=== PATIENT | female | born 1975 | race Caucasian/White ===

== ENCOUNTER 2022-03-20 09:01 | Outpatient (CLI) | payer OTHER | END 2022-03-20 09:02 | disposition home or self-care (01) | LOC: BICRAD 09:01 | PROVIDERS: ATTEND Chiropractor | DX: M19.90 Unspecified osteoarthritis, unspecified site (principal) ==

== ENCOUNTER 2022-06-21 10:50 | Outpatient (CLI) | payer OTHER | END 2022-06-21 10:51 | disposition home or self-care (01) | LOC: RAD 10:50 | PROVIDERS: ATTEND Anesthesiology Pain Medicine | DX: M43.17 Spondylolisthesis, lumbosacral region (principal); M47.816 Spondylosis without myelopathy or radiculopathy, lumbar region; M47.814 Spondylosis without myelopathy or radiculopathy, thoracic region | CPT/HCPCS: 72110 ==

== ENCOUNTER 2022-09-01 06:05 | Day surgery (SDC) | payer OTHER ==
[2022-08-31 10:11] VITALS: BMI 39.8
[2022-09-01] MEDS ORDERED: Lidocaine 1% MPF 2 ML VIAL ONE ×2 (06:56→07:38)
[2022-09-01] MEDS ORDERED: CEFAZOLIN 2 GM VIAL ONE ×2 (06:56→14:22)
[2022-09-01] MEDS ORDERED: Sodium Chloride 0.9% 100 ML ONE ×2 (06:57→14:22)
[2022-09-01] MEDS ORDERED: fentaNYL PF 100 MCG/2 ML SYRINGE ONE (08:42)
[2022-09-01] MEDS ORDERED: HYDROmorphone 0.5 MG/0.5 ML SYRINGE ONE (08:42)
[2022-09-01] MEDS ORDERED: Thrombin 5000 UNITS/5 ML VIAL ONE ×2 (08:48→08:49)
[2022-09-01] MEDS ORDERED: Bupivacaine HCl 0.5%/Epinephrine 1:200,000/PF 30 ml Vial ONE ×2 (08:48→08:49)
[2022-09-01] MEDS ORDERED: FENTANYL 50 MCG/ML 1 ML VIAL ONE ×3 (09:02→12:09)
[2022-09-01] MEDS ORDERED: Metoclopramide HCl 10 MG/2 ML VIAL ONE (09:11)
[2022-09-01] MEDS ORDERED: PROPOFOL 200 MG/20 ML VIAL ONE (09:11)
[2022-09-01] MEDS ORDERED: NEOSTIGMINE 3 MG/3 ML SYR 3 MG/3 ML SYRINGE ONE (09:11)
[2022-09-01] MEDS ORDERED: Glycopyrrolate 0.2 MG/ML 5 ML SYRINGE ONE (09:11)
[2022-09-01] MEDS ORDERED: ePHEDrine 50 MG/ML VIAL ONE (09:11)
[2022-09-01] MEDS ORDERED: Rocuronium Bromide 50 MG/5 ML VIAL ONE (09:11)
[2022-09-01] MEDS ORDERED: Phenylephrine 10 MG/ML VIAL ONE (09:11)
[2022-09-01] MEDS ORDERED: Dexamethasone 20 MG/5 ML VIAL ONE (09:11)
[2022-09-01] MEDS ORDERED: Ondansetron PF 4 MG/2 ML Vial ONE (09:11)
[2022-09-01] MEDS ORDERED: Morphine 4 MG/ML VIAL ONE (13:37)
[2022-09-01] MEDS ORDERED: HYDROcodone/Acetaminophen 5/325 mg Tablet ONE (14:09)
== END 2022-09-01 15:07 | disposition home or self-care (01) ==
LOC: SDC 06:05
PROVIDERS: ATTEND Neurological Surgery
PROC: 0SG3071 Fusion of Lumbosacral Joint with Autologous Tissue Substitute, Posterior Approach, Posterior Column, Open Approach (ICD-10-PCS; principal; 2022-09-01)
DX: M47.817 Spondylosis without myelopathy or radiculopathy, lumbosacral region (principal); M43.17 Spondylolisthesis, lumbosacral region; M48.07 Spinal stenosis, lumbosacral region; M54.16 Radiculopathy, lumbar region; M21.379 Foot drop, unspecified foot; G89.4 Chronic pain syndrome; M19.90 Unspecified osteoarthritis, unspecified site; Z79.899 Other long term (current) drug therapy; Z88.4 Allergy status to anesthetic agent; Z91.02 Food additives allergy status; Z91.030 Bee allergy status; Z91.040 Latex allergy status; Z91.048 Other nonmedicinal substance allergy status
CPT/HCPCS: C1713; C1768; C1776; J1100; J1170; J2270; J2370; J2405; J2704; J2765; J3010; J3490

== ENCOUNTER 2022-09-02 23:46 | Observation (INO) | payer OTHER ==
[2022-09-03] MEDS ORDERED: Morphine 4 MG/ML VIAL ONE ×2 (00:09→02:24)
[2022-09-03] MEDS ORDERED: Ondansetron PF 4 MG/2 ML Vial ONE (00:09)
[2022-09-03 00:45] LABS: #Basophils 0.1 thou/uL (0.0-0.2); #Eosinphils 0.1 thou/uL (0.0-0.7); #Lymphocytes 2.2 thou/uL (1.20-3.40); #Monocytes 1.7 thou/uL (0.11-0.59); #Neutrophils 12.9 thou/uL (1.40-6.50); %Basophils 0.3 % (0.0-1.0); %Eosinophils 0.6 % (0.0-10.0); %Lymphocytes 12.9 % (21.0-51.0); %Monocytes 9.8 % (0.0-10.0); %Neutrophils 76.4 % (42.0-75.0); Mean Corpuscular HGB CONC 33.3 g/dL (32.0-36.0); Mean Corpuscular Hemoglobin 28.7 pg (27.0-31.0); Mean Corpuscular Volume 86.2 fl (78.0-98.0); Mean Platelet Volume 7.9 fL (7.4-10.4); Platelet Count 313 10x3/uL (130-400); RBC Distribution Width 13.2 % (11.5-14.5); Red Blood Cell (RBC) Count 3.82 mill/uL (4.20-5.40); White Blood Cell (WBC) Count 16.9 10x3/uL (4.8-10.8)
[2022-09-03 01:12] LABS: ALT (SGPT) 14 U/L (8-55); AST (SGOT) 19 U/L (5-34); Albumin 3.8 g/dL (3.5-5.0); Alkaline Phosphatase 78 U/L (40-110); Anion Gap 13 mmol/L (10-20); BUN (Urea Nitrogen) 7 mg/dL (7.0-18.7); Bilirubin, Total 1.3 mg/dL (0.2-1.2); Calc. Creatinine Clearance 0 mL/min (70-130); Calcium 8.5 mg/dL (7.8-10.44); Carbon Dioxide 25 mmol/L (22-29); Chloride 103 mmol/L (98-107); Estimated GFR 102; Globulin 3.1 g/dL (2.4-3.5); Glucose 120 mg/dL (70-105); Potassium 3.7 mmol/L (3.5-5.1); Protein, Total 6.9 g/dL (6.0-8.3); Sodium 137 mmol/L (136-145)
[2022-09-03] MEDS ORDERED: Acetaminophen 325 MG TAB PO PRN (02:18)
[2022-09-03] MEDS ORDERED: Ondansetron PF 4 MG/2 ML Vial IVP PRN (02:18)
[2022-09-03] MEDS ORDERED: HYDROcodone/Acetaminophen 7.5/325 mg Tablet PO PRN (02:18)
[2022-09-03] MEDS ORDERED: traZODone HCl 50 MG TAB PO PRN (02:26)
[2022-09-03] MEDS ORDERED: Promethazine 25 MG TAB PO PRN (02:26)
[2022-09-03] MEDS ORDERED: Dexamethasone 10 MG/ML VIAL SLOW IVP SCH (02:30)
[2022-09-03] MEDS ORDERED: Albuterol Sulfate 1.25 MG/3 ML NEB INH PRN (02:50)
[2022-09-03] MEDS: HYDROcodone/Acetaminophen 10/325 mg Tablet PO PRN ×3 (04:27→19:48)
[2022-09-03] MEDS: tiZANidine HCl 4 MG TAB PO PRN ×2 (04:27→14:26)
[2022-09-03] MEDS: Morphine 4 MG/ML VIAL SLOW IVP PRN ×2 (04:27→08:26)
[2022-09-03 04:55] VITALS: BMI 40.7
[2022-09-03 08:18] LABS: SARS-CoV-2 NAA Rapid Test DETECTED (NotDetected)
[2022-09-03] MEDS: Acetaminophen/Codeine 30-300mg Tablet PO PRN ×2 (08:25→12:52)
[2022-09-03] MEDS: Pregabalin 50 MG CAP PO SCH ×3 (08:25→21:35)
[2022-09-03] MEDS: Dexamethasone 4 MG TAB PO SCH ×3 (08:25→21:35)
[2022-09-03] MEDS: Folic Acid 1 MG TAB PO SCH (08:26)
[2022-09-03] MEDS: DULoxetine 30 MG CAP PO SCH (08:27)
[2022-09-03] MEDS ORDERED: DULoxetine 30 MG CAP PO SCH (21:00)
[2022-09-03] MEDS ORDERED: Pramipexole Di-HCl 1 MG TAB PO SCH (21:00)
[2022-09-04] MEDS: Dexamethasone 4 MG TAB PO SCH ×3 (03:29→14:02)
[2022-09-04] MEDS: HYDROcodone/Acetaminophen 10/325 mg Tablet PO PRN (03:29)
[2022-09-04] MEDS: Acetaminophen/Codeine 30-300mg Tablet PO PRN ×2 (07:32→12:33)
[2022-09-04] MEDS: Pregabalin 50 MG CAP PO SCH ×2 (09:23→14:02)
[2022-09-04] MEDS: DULoxetine 30 MG CAP PO SCH (09:23)
[2022-09-04] MEDS: HYDROcodone/Acetaminophen 7.5/325 mg Tablet PO PRN ×2 (09:24→18:09)
[2022-09-04] MEDS: Folic Acid 1 MG TAB PO SCH (09:24)
[2022-09-04] MEDS: tiZANidine HCl 4 MG TAB PO PRN (11:30)
[2022-09-04 12:30] VITALS: BP 132/66; TEMP 98.5
[2022-09-05] MEDS ORDERED: Dexamethasone 1 MG TAB PO SCH (09:00)
[2022-09-07] MEDS ORDERED: Dexamethasone 1 MG TAB PO SCH (09:00)
[2022-09-09] MEDS ORDERED: Dexamethasone 1 MG TAB PO SCH (09:00)
== END 2022-09-04 18:45 | disposition home or self-care (01) ==
LOC: ERS 23:46 → SJJU 09-03 02:26
PROVIDERS: ADMIT Surgery; ATTEND Surgery
DX: G89.18 Other acute postprocedural pain (principal); M54.50 Low back pain, unspecified; M79.661 Pain in right lower leg; G89.4 Chronic pain syndrome; M19.90 Unspecified osteoarthritis, unspecified site; U07.1 COVID-19; K21.9 Gastro-esophageal reflux disease without esophagitis; J45.909 Unspecified asthma, uncomplicated; Z79.899 Other long term (current) drug therapy; Z88.4 Allergy status to anesthetic agent; Z91.02 Food additives allergy status; Z91.030 Bee allergy status; Z91.040 Latex allergy status; Z91.048 Other nonmedicinal substance allergy status; Z98.1 Arthrodesis status
CPT/HCPCS: 36415; 80053; 85025; 93005; 96374; 96375; 96376; G0378; J1100; J2270; J2405; J8540; U0002

== ENCOUNTER 2022-09-09 02:37 | Inpatient (IN) | payer OTHER ==
[2022-09-09] MEDS ORDERED: Midazolam HCl 2 mg/2 ml Vial ONE (02:53)
[2022-09-09 03:38] LABS: #Eosinphils 0.3 thou/uL (0.0-0.7); #Lymphocytes 2.3 thou/uL (1.20-3.40); #Monocytes 1.2 thou/uL (0.11-0.59); #Neutrophils 14.4 thou/uL (1.40-6.50); %Basophils 0.1 % (0.0-1.0); %Eosinophils 1.7 % (0.0-10.0); %Lymphocytes 12.7 % (21.0-51.0); %Monocytes 6.3 % (0.0-10.0); %Neutrophils 79.2 % (42.0-75.0); Hemoglobin 12.4 g/dL (12.0-16.0); Mean Corpuscular HGB CONC 31.9 g/dL (32.0-36.0); Mean Corpuscular Hemoglobin 27.6 pg (27.0-31.0); Mean Corpuscular Volume 86.6 fl (78.0-98.0); Mean Platelet Volume 7.4 fL (7.4-10.4); Platelet Count 459 10x3/uL (130-400); RBC Distribution Width 13.2 % (11.5-14.5); Red Blood Cell (RBC) Count 4.48 mill/uL (4.20-5.40); White Blood Cell (WBC) Count 18.2 10x3/uL (4.8-10.8)
[2022-09-09] MEDS ORDERED: Ketorolac Tromethamine 30 MG/ML VIAL ONE (03:45)
[2022-09-09] MEDS ORDERED: HYDROmorphone 0.5 MG/0.5 ML SYRINGE ONE ×2 (03:45→06:06)
[2022-09-09 04:12] LABS: ALT (SGPT) 14 U/L (8-55); AST (SGOT) 15 U/L (5-34); Albumin 3.9 g/dL (3.5-5.0); Alkaline Phosphatase 78 U/L (40-110); Anion Gap 14 mmol/L (10-20); BUN (Urea Nitrogen) 10 mg/dL (7.0-18.7); Calc. Creatinine Clearance 0 mL/min (70-130); Carbon Dioxide 27 mmol/L (22-29); Chloride 100 mmol/L (98-107); Estimated GFR 100; Globulin 3.3 g/dL (2.4-3.5); Glucose 129 mg/dL (70-105); Potassium 4.6 mmol/L (3.5-5.1); Protein, Total 7.2 g/dL (6.0-8.3); Sodium 136 mmol/L (136-145)
[2022-09-09] MEDS ORDERED: Dexamethasone 10 MG/ML VIAL ONE (06:06)
[2022-09-09 06:28] LABS: Bilirubin, Total 1.2 mg/dL (0.2-1.2)
[2022-09-09] MEDS ORDERED: Albuterol Sulfate 2.5 mg/3 ml Neb NEB PRN (07:53)
[2022-09-09] MEDS ORDERED: Ondansetron PF 4 MG/2 ML Vial IVP PRN ×2 (07:53→10:30)
[2022-09-09] MEDS ORDERED: Promethazine HCl 12.5 MG in Sodium Chloride 0.9% 50 ML IVPB PRN (07:53)
[2022-09-09 09:09] LABS: Acetaminophen Less than 10.0 mcg/mL (10.0-30.0)
[2022-09-09] MEDS ORDERED: Metoclopramide HCl 10 MG/2 ML VIAL IVP PRN (09:15)
[2022-09-09 10:25] VITALS: BMI 40.6
[2022-09-09] MEDS ORDERED: Promethazine HCl 25 MG/ML VIAL IM PRN (10:30)
[2022-09-09] MEDS ORDERED: diphenhydrAMINE 50 MG/ML VIAL IM/IV PRN (10:30)
[2022-09-09] MEDS ORDERED: diphenhydrAMINE 25 MG CAP PO PRN (10:30)
[2022-09-09] MEDS: Morphine Sulfate 100 MG in Dextrose 5% in Water 98 ML IV SCH (11:57)
[2022-09-09] MEDS: Sodium Chloride 0.9% 1,000 ML IV SCH ×4 (11:57→19:54)
[2022-09-09] MEDS: Pantoprazole 40 MG VIAL IVP SCH (12:01)
[2022-09-09] MEDS: tiZANidine HCl 4 MG TAB PO SCH ×2 (15:41→19:55)
[2022-09-09] MEDS: Pregabalin 50 MG CAP PO SCH ×2 (15:41→19:54)
[2022-09-09] MEDS: Dexamethasone 4 mg/ml Vial SLOW IVP SCH ×2 (15:41→19:53)
[2022-09-09] MEDS: Pramipexole Di-HCl 1 MG TAB PO SCH (19:54)
[2022-09-09] MEDS: DULoxetine 30 MG CAP PO SCH (19:54)
[2022-09-10] MEDS: Sodium Chloride 0.9% 1,000 ML IV SCH ×2 (03:07→13:24)
[2022-09-10 06:38] LABS: Anion Gap 12 mmol/L (10-20); BUN (Urea Nitrogen) 9 mg/dL (7.0-18.7); Calc. Creatinine Clearance 164 mL/min (70-130); Calcium 8.9 mg/dL (7.8-10.44); Carbon Dioxide 27 mmol/L (22-29); Chloride 101 mmol/L (98-107); Estimated GFR 107; Glucose 129 mg/dL (70-105); Potassium 5.1 mmol/L (3.5-5.1); Sodium 135 mmol/L (136-145)
[2022-09-10 07:07] LABS: Band 4 % (5-11); Hemoglobin 11.7 g/dL (12.0-16.0); Lymphocytes 7 % (21-51); MDiff Complete? YES; Mean Corpuscular HGB CONC 31.5 g/dL (32.0-36.0); Mean Corpuscular Hemoglobin 27.9 pg (27.0-31.0); Mean Corpuscular Volume 88.7 fl (78.0-98.0); Mean Platelet Volume 7.4 fL (7.4-10.4); Monocytes 4 % (0-10); Neutrophil 85 % (42-75); Platelet Count 446 10x3/uL (130-400); RBC Distribution Width 13.4 % (11.5-14.5); Red Blood Cell (RBC) Count 4.18 mill/uL (4.20-5.40); White Blood Cell (WBC) Count 24.5 10x3/uL (4.8-10.8)
[2022-09-10] MEDS: Pregabalin 50 MG CAP PO SCH ×3 (08:25→20:38)
[2022-09-10] MEDS: Enoxaparin Sodium 40 MG/0.4 ML SYRINGE SC SCH (08:25)
[2022-09-10] MEDS: Dexamethasone 4 mg/ml Vial SLOW IVP SCH ×3 (08:27→20:36)
[2022-09-10] MEDS: Pantoprazole 40 MG VIAL IVP SCH (08:30)
[2022-09-10] MEDS: tiZANidine HCl 4 MG TAB PO SCH ×3 (08:30→20:39)
[2022-09-10] MEDS ORDERED: Polyethylene Glycol 3350 17 GM Packet PO SCH (09:00)
[2022-09-10] MEDS: DULoxetine 30 MG CAP PO SCH ×2 (10:33→20:38)
[2022-09-10] MEDS: Morphine Sulfate 100 MG in Dextrose 5% in Water 98 ML IV SCH (13:24)
[2022-09-10] MEDS ORDERED: Polyethylene Glycol 3350 17 GM Packet PO PRN (13:27)
[2022-09-10] MEDS ORDERED: Bisacodyl 10 MG SUPP PR PRN (13:28)
[2022-09-10] MEDS: Glycerin Adult Supp. (12 ct jar) PR SCH ×2 (15:56→20:40)
[2022-09-10] MEDS: Pramipexole Di-HCl 1 MG TAB PO SCH (20:39)
[2022-09-10] MEDS: Polyethylene Glycol 3350 17 GM Packet PO SCH (20:40)
[2022-09-11] MEDS: Sodium Chloride 0.9% 1,000 ML IV SCH ×2 (02:15→09:32)
[2022-09-11] MEDS: Glycerin Adult Supp. (12 ct jar) PR SCH ×3 (07:54→21:04)
[2022-09-11] MEDS: Pregabalin 50 MG CAP PO SCH ×3 (08:13→21:02)
[2022-09-11] MEDS: DULoxetine 30 MG CAP PO SCH ×2 (08:13→21:03)
[2022-09-11] MEDS: Polyethylene Glycol 3350 17 GM Packet PO SCH ×2 (08:13→21:03)
[2022-09-11] MEDS: Dexamethasone 4 mg/ml Vial SLOW IVP SCH ×3 (08:14→21:03)
[2022-09-11] MEDS: Enoxaparin Sodium 40 MG/0.4 ML SYRINGE SC SCH (08:14)
[2022-09-11] MEDS: tiZANidine HCl 4 MG TAB PO SCH ×3 (08:14→21:02)
[2022-09-11] MEDS: Pantoprazole 40 MG VIAL IVP SCH (08:14)
[2022-09-11 10:18] LABS: #Eosinphils 0.2 thou/uL (0.0-0.7); #Lymphocytes 2.2 thou/uL (1.20-3.40); #Monocytes 1.9 thou/uL (0.11-0.59); #Neutrophils 21.6 thou/uL (1.40-6.50); %Eosinophils 0.7 % (0.0-10.0); %Lymphocytes 8.4 % (21.0-51.0); %Monocytes 7.2 % (0.0-10.0); %Neutrophils 83.8 % (42.0-75.0); Hemoglobin 10.9 g/dL (12.0-16.0); Mean Corpuscular HGB CONC 30.9 g/dL (32.0-36.0); Mean Corpuscular Hemoglobin 27.4 pg (27.0-31.0); Mean Corpuscular Volume 88.6 fl (78.0-98.0); Mean Platelet Volume 7.5 fL (7.4-10.4); Platelet Count 421 10x3/uL (130-400); RBC Distribution Width 13.3 % (11.5-14.5); Red Blood Cell (RBC) Count 3.98 mill/uL (4.20-5.40); White Blood Cell (WBC) Count 25.8 10x3/uL (4.8-10.8)
[2022-09-11 10:25] LABS: Calcium 8.5 mg/dL (7.8-10.44); Chloride 101 mmol/L (98-107); Potassium 4.6 mmol/L (3.5-5.1); Sodium 137 mmol/L (136-145)
[2022-09-11 10:48] LABS: Anion Gap 11 mmol/L (10-20); BUN (Urea Nitrogen) 11 mg/dL (7.0-18.7); Calc. Creatinine Clearance 169 mL/min (70-130); Carbon Dioxide 29 mmol/L (22-29); Estimated GFR 109; Glucose 134 mg/dL (70-105)
[2022-09-11] MEDS: Morphine Sulfate 100 MG in Dextrose 5% in Water 98 ML IV SCH (15:18)
[2022-09-11] MEDS: Pramipexole Di-HCl 1 MG TAB PO SCH (21:02)
[2022-09-12 07:34] LABS: #Eosinphils 0.1 thou/uL (0.0-0.7); #Lymphocytes 2.7 thou/uL (1.20-3.40); #Monocytes 1.7 thou/uL (0.11-0.59); #Neutrophils 17.8 thou/uL (1.40-6.50); %Basophils 0.1 % (0.0-1.0); %Eosinophils 0.4 % (0.0-10.0); %Lymphocytes 12.1 % (21.0-51.0); %Monocytes 7.7 % (0.0-10.0); %Neutrophils 79.8 % (42.0-75.0); Hemoglobin 11.6 g/dL (12.0-16.0); Mean Corpuscular Hemoglobin 28.1 pg (27.0-31.0); Mean Corpuscular Volume 88.1 fl (78.0-98.0); Mean Platelet Volume 7.5 fL (7.4-10.4); Platelet Count 403 10x3/uL (130-400); RBC Distribution Width 13.3 % (11.5-14.5); Red Blood Cell (RBC) Count 4.11 mill/uL (4.20-5.40); White Blood Cell (WBC) Count 22.3 10x3/uL (4.8-10.8)
[2022-09-12] MEDS: Enoxaparin Sodium 40 MG/0.4 ML SYRINGE SC SCH (08:42)
[2022-09-12] MEDS: Dexamethasone 4 mg/ml Vial SLOW IVP SCH ×3 (08:42→19:54)
[2022-09-12] MEDS: DULoxetine 30 MG CAP PO SCH ×2 (08:42→19:54)
[2022-09-12] MEDS: Glycerin Adult Supp. (12 ct jar) PR SCH ×3 (08:43→19:55)
[2022-09-12] MEDS: tiZANidine HCl 4 MG TAB PO SCH ×3 (08:43→19:54)
[2022-09-12] MEDS: Pregabalin 50 MG CAP PO SCH ×3 (08:43→19:54)
[2022-09-12] MEDS: Polyethylene Glycol 3350 17 GM Packet PO SCH ×2 (08:43→19:55)
[2022-09-12] MEDS ORDERED: Pregabalin 50 MG CAP PO SCH (09:15)
[2022-09-12] MEDS: HYDROcodone/Acetaminophen 10/325 mg Tablet PO PRN ×3 (12:00→19:55)
[2022-09-12] MEDS: traMADol HCl 50 MG TAB PO PRN (14:25)
[2022-09-12] MEDS: Pramipexole Di-HCl 1 MG TAB PO SCH (19:53)
[2022-09-13] MEDS: HYDROcodone/Acetaminophen 10/325 mg Tablet PO PRN ×4 (02:54→19:37)
[2022-09-13] MEDS: traMADol HCl 50 MG TAB PO PRN ×2 (05:56→13:13)
[2022-09-13] MEDS: Polyethylene Glycol 3350 17 GM Packet PO SCH (08:35)
[2022-09-13] MEDS: Enoxaparin Sodium 40 MG/0.4 ML SYRINGE SC SCH (08:35)
[2022-09-13] MEDS: DULoxetine 30 MG CAP PO SCH ×2 (08:35→21:06)
[2022-09-13] MEDS: Dexamethasone 4 mg/ml Vial SLOW IVP SCH ×3 (08:35→21:07)
[2022-09-13] MEDS: Glycerin Adult Supp. (12 ct jar) PR SCH ×3 (08:36→21:14)
[2022-09-13] MEDS: Pregabalin 50 MG CAP PO SCH ×3 (08:36→21:06)
[2022-09-13] MEDS: tiZANidine HCl 4 MG TAB PO SCH ×3 (08:36→21:07)
[2022-09-13] MEDS ORDERED: Polyethylene Glycol 3350 17 GM Packet PO PRN (11:51)
[2022-09-13] MEDS: Lidocaine 5% Patch TD SCH (13:14)
[2022-09-13] MEDS: Pramipexole Di-HCl 1 MG TAB PO SCH (21:14)
[2022-09-13] MEDS: Transdermal Patch Removal TOP SCH (23:52)
[2022-09-14] MEDS: HYDROcodone/Acetaminophen 10/325 mg Tablet PO PRN ×5 (05:07→23:43)
[2022-09-14] MEDS: Pregabalin 50 MG CAP PO SCH ×3 (09:01→20:05)
[2022-09-14] MEDS: DULoxetine 30 MG CAP PO SCH ×2 (09:01→20:06)
[2022-09-14] MEDS: Glycerin Adult Supp. (12 ct jar) PR SCH ×3 (09:02→20:06)
[2022-09-14] MEDS: tiZANidine HCl 4 MG TAB PO SCH ×3 (09:02→20:05)
[2022-09-14] MEDS: Dexamethasone 4 mg/ml Vial SLOW IVP SCH ×3 (09:02→20:06)
[2022-09-14] MEDS: Enoxaparin Sodium 40 MG/0.4 ML SYRINGE SC SCH (09:02)
[2022-09-14] MEDS: traMADol HCl 50 MG TAB PO PRN (11:29)
[2022-09-14] MEDS: Lidocaine 5% Patch TD SCH (11:29)
[2022-09-14] MEDS: Pramipexole Di-HCl 1 MG TAB PO SCH (20:05)
[2022-09-14] MEDS: Transdermal Patch Removal TOP SCH (23:45)
[2022-09-15] MEDS: traMADol HCl 50 MG TAB PO PRN ×3 (02:03→17:10)
[2022-09-15] MEDS: HYDROcodone/Acetaminophen 10/325 mg Tablet PO PRN ×2 (05:24→11:33)
[2022-09-15] MEDS: Enoxaparin Sodium 40 MG/0.4 ML SYRINGE SC SCH (08:36)
[2022-09-15] MEDS: tiZANidine HCl 4 MG TAB PO SCH ×3 (08:36→20:08)
[2022-09-15] MEDS: Pregabalin 50 MG CAP PO SCH ×3 (08:36→20:07)
[2022-09-15] MEDS: DULoxetine 30 MG CAP PO SCH ×2 (08:36→20:08)
[2022-09-15] MEDS: Dexamethasone 4 MG TAB PO SCH ×2 (08:36→17:10)
[2022-09-15] MEDS: Glycerin Adult Supp. (12 ct jar) PR SCH ×3 (08:37→20:08)
[2022-09-15] MEDS: Lidocaine 5% Patch TD SCH (11:34)
[2022-09-15 18:57] VITALS: TEMP 97.9
[2022-09-15] MEDS: Pramipexole Di-HCl 1 MG TAB PO SCH (20:07)
[2022-09-15] MEDS: Transdermal Patch Removal TOP SCH (23:55)
[2022-09-16] MEDS: HYDROcodone/Acetaminophen 10/325 mg Tablet PO PRN (04:52)
[2022-09-16] MEDS: DULoxetine 30 MG CAP PO SCH (08:57)
[2022-09-16] MEDS: Pregabalin 50 MG CAP PO SCH (08:57)
[2022-09-16] MEDS: traMADol HCl 50 MG TAB PO PRN (08:57)
[2022-09-16] MEDS: Dexamethasone 4 MG TAB PO SCH (08:58)
[2022-09-16] MEDS: tiZANidine HCl 4 MG TAB PO SCH (08:58)
[2022-09-16] MEDS: Enoxaparin Sodium 40 MG/0.4 ML SYRINGE SC SCH (08:58)
[2022-09-16] MEDS: Glycerin Adult Supp. (12 ct jar) PR SCH (08:58)
[2022-09-16 09:01] VITALS: BP 120/83
[2022-09-16] MEDS: Lidocaine 5% Patch TD SCH (12:30)
== END 2022-09-16 12:56 | disposition home or self-care (01) | DRG 552 ==
LOC: ERS 02:37 → SUATTDRO 02:37 → MSONC 06:41 → T4-B 12:40 → OBSVTOIN 09-10 13:36
PROVIDERS: ADMIT Internal Medicine; ATTEND Internal Medicine
DX: M54.16 Radiculopathy, lumbar region (principal); K50.90 Crohn's disease, unspecified, without complications; Z68.41 Body mass index [BMI] 40.0-44.9, adult; Z20.822 Contact with and (suspected) exposure to COVID-19; J45.20 Mild intermittent asthma, uncomplicated; E66.01 Morbid (severe) obesity due to excess calories; F41.9 Anxiety disorder, unspecified; F32.A Depression, unspecified; G25.81 Restless legs syndrome; G43.909 Migraine, unspecified, not intractable, without status migrainosus; K21.9 Gastro-esophageal reflux disease without esophagitis; K59.00 Constipation, unspecified; G89.18 Other acute postprocedural pain; Y83.8 Other surgical procedures as the cause of abnormal reaction of the patient, or of later complication, without mention of misadventure at the time of the procedure; G89.29 Other chronic pain; Z91.014 Allergy to mammalian meats; Z79.899 Other long term (current) drug therapy; Z91.040 Latex allergy status; Z91.018 Allergy to other foods; Z91.09 Other allergy status, other than to drugs and biological substances; Z98.1 Arthrodesis status; Z90.49 Acquired absence of other specified parts of digestive tract; Z83.3 Family history of diabetes mellitus; Z82.49 Family history of ischemic heart disease and other diseases of the circulatory system
CPT/HCPCS: 36415; 80048; 80053; 80143; 85025; 86140; 93970; 96374; 96375; 96376; 80307; C9113; G0378; J1100; J1170; J1650; J1885; J2250; J2270; J2405; J2765; J7050; J7070; J8540; U0003; U0005

== ENCOUNTER 2023-01-19 07:01 | Outpatient (CLI) | payer OTHER | END 2023-01-19 07:02 | disposition home or self-care (01) | LOC: CT 07:01 | PROVIDERS: ATTEND Neurological Surgery | DX: M54.16 Radiculopathy, lumbar region (principal); M43.17 Spondylolisthesis, lumbosacral region; M48.07 Spinal stenosis, lumbosacral region; Z98.890 Other specified postprocedural states | CPT/HCPCS: 72131 ==

== ENCOUNTER 2023-08-06 09:48 | Outpatient (CLI) | payer OTHER | END 2023-08-06 09:49 | disposition home or self-care (01) | LOC: MRI 09:48 | PROVIDERS: ATTEND Anesthesiology Pain Medicine | DX: M47.24 Other spondylosis with radiculopathy, thoracic region (principal); M48.02 Spinal stenosis, cervical region; M43.12 Spondylolisthesis, cervical region | CPT/HCPCS: 72052; 72141; 72146 ==

== ENCOUNTER 2024-05-25 13:49 | Emergency (ER) | payer OTHER ==
[2024-05-25] MEDS ORDERED: Lidocaine 1% (PF) 30 ML VIAL ONE (16:58)
[2024-05-25] MEDS ORDERED: Bacitracin 1 PK ONE (18:02)
== END 2024-05-25 18:09 | disposition home or self-care (01) ==
LOC: ERS 13:49
DX: S61.211A Laceration without foreign body of left index finger without damage to nail, initial encounter (principal); W26.0XXA Contact with knife, initial encounter; J45.909 Unspecified asthma, uncomplicated; Y93.89 Activity, other specified; Y92.000 Kitchen of unspecified non-institutional (private) residence as the place of occurrence of the external cause; Z79.899 Other long term (current) drug therapy
CPT/HCPCS: 12001; 99282; J2001